=== PATIENT | male | born 1995 | race Caucasian/White ===

== ENCOUNTER 2017-05-03 17:48 | Emergency (ER) | payer BC, OTHER ==
[~2017-05-03] VITALS: Ht 180.3 cm; Wt 67.3 kg
[2017-05-03 17:53] VITALS: TEMP 36.7; Ht 180.3 cm; Wt 67.3 kg
--- NOTE | 2017-05-03 18:31 | DIAGNOSTIC IMAGING REPORT ---
LEFT HAND 3 VIEWS HISTORY: left thumb/hand injury COMPARISON: None. FINDINGS: Slightly distracted fracture at the ulnar base of the proximal phalanx of the left thumb. This measures up to 1 mm of distraction. Mild soft tissue swelling at the thumb base. No dislocation. IMPRESSION: Slightly distracted fracture at the ulnar base of the proximal phalanx of the left thumb consistent with a gamekeepers thumb. Electronically signed by: Juni Tesfaye M.D. 05/03/2017 6:29 PM Dictated Date/Time: 05/03/2017 6:28 PM
--- NOTE | 2017-05-03 18:37 | EMERGENCY ROOM VISIT NOTE ---
ED Visit Note First contact with patient: 17:57 CHIEF COMPLAINT: Left Hand injury HISTORY OF PRESENT ILLNESS: This 21-year-old male presents the ER with chief complain of left hand pain at the base of his thumb. The patient states that he was sliding and running and jumping on his sled and he thinks his left thumb got wedged underneath the slide. The patient states he can bend his thumb but is painful. He points to the first metacarpal as the area of pain. The patient is right-hand dominant. REVIEW OF SYSTEMS: 6 system review was performed and was negative unless stated otherwise in history of present illness. PMH: The patient is healthy; there is no significant medical or surgical history. SOCIAL HISTORY: Patient is a [employer] student. The patient denies any tobacco use but admits to occasional alcohol use. PHYSICAL EXAM: Vital Signs: Were reviewed Reviewed Nurse's notes. GENERAL: 21- year-old male appears in no acute distress. MENTAL Status: Alert and oriented 3. LEFT HAND: No gross bony deformity noted. The patient has mild edema noted of the first MCP joint with limited range of motion. Remainder hand is unremarkable. EMERGENCY DEPARTMENT COURSE: The patient was evaluated. The patient was offered pain medication but declined. X-ray of the left hand was ordered interpreted by the radiologist and myself. DIAGNOSTICS:LEFT HAND 3 VIEWS HISTORY: left thumb/hand injury COMPARISON: None. FINDINGS: Slightly distracted fracture at the ulnar base of the proximal phalanx of the left thumb. This measures up to 1 mm of distraction. Mild soft tissue swelling at the thumb base. No dislocation. IMPRESSION: Slightly distracted fracture at the ulnar base of the proximal phalanx of the left thumb consistent with a gamekeepers thumb. Electronically signed by: Juni Tesfaye M.D. 05/03/2017 6:29 PM The patient was informed of the findings. The patient is placed in Ortho-Glass thumb spica splint and discharged home in stable condition. DIAGNOSIS: Gamekeepers fracture left thumb DISCHARGE INSTRUCTIONS & TREATMENT: Ibuprofen 600 mg every 6 hours with food for pain. Ice and elevation as much as possible over the next 24 hours. Keep hand in splint until evaluated by orthopedics. Keep the splint dry. Follow-up with [facility] as soon as possible to get referral to orthopedics. Current/Historical Medications No Active Prescriptions or Reported Meds Allergies Coded Allergies: No Known Allergies (Unverified , 05/03/17) Vital Signs Date Time Temp Pulse Resp B/P (MAP) Pulse Ox O2 Delivery O2 Flow Rate FiO2 05/03/17 17:53 36.7 86 20 125/83 98 Room Air Departure Information Prescriptions No Active Prescriptions or Reported Meds Referrals No Doctor, Assigned (PCP) Patient Instructions [facility]
[2017-05-03 18:42] VITALS: BP 126/88; PULSE 97; O2SAT 97
== END 2017-05-03 18:43 | disposition home or self-care (01) ==
LOC: C.EDB 17:51 → C.EDD 18:43
DX: S62.515A Nondisplaced fracture of proximal phalanx of left thumb, initial encounter for closed fracture (principal); W23.0XXA Caught, crushed, jammed, or pinched between moving objects, initial encounter; Y92.89 Other specified places as the place of occurrence of the external cause; Y93.23 Activity, snow (alpine) (downhill) skiing, snowboarding, sledding, tobogganing and snow tubing

== ENCOUNTER → 2017-06-21 | Outpatient (CLI) | payer BC | END | disposition home or self-care (01) | LOC: C.RDSM 13:45 | PROVIDERS: ATTEND Orthopaedic Surgery Sports Medicine | DX: Z09 Encounter for follow-up examination after completed treatment for conditions other than malignant neoplasm (principal); M79.645 Pain in left finger(s) ==

== ENCOUNTER → 2017-08-02 | Outpatient (CLI) | payer BC | END | disposition home or self-care (01) | LOC: C.RDSM 14:21 | PROVIDERS: ATTEND Orthopaedic Surgery Sports Medicine | DX: S62.509A Fracture of unspecified phalanx of unspecified thumb, initial encounter for closed fracture (principal); X58.XXXA Exposure to other specified factors, initial encounter ==